=== PATIENT | female | born 1975 | race Caucasian/White ===

== ENCOUNTER 2020-02-16 09:29 | Emergency (ER) | payer BC ==
[~2020-02-16] VITALS: Ht 175.3 cm; Wt 107.9 kg
[~2020-02-16 09:29] MED LIST: IBUP-1222 PO; IBUP1CAP PO
[2020-02-16] MEDS ORDERED: ACETAMINOPHEN 500 MG TABLET PO ONE (10:00)
[2020-02-16] MEDS ORDERED: ACETAMINOPHEN 500 MG TABLET ONE (10:02)
--- NOTE | 2020-02-16 10:08 | NUR ---
PT CAME IN CO OF SOB, WHEEZING, BODY ACHES AND FEVER. PT WAS SENT FROM . AT SHE WAS 88% ON ROOM AIR. PLACED HER ON 2 LITERS OF O2 VIA NC AND SENT HER TO THE ED. PT STATES "MY HUSBANDS CO WORKERS HAVE TESTED POSITIVE FOR COVID BUT HE REMAINS NEGATIVE. I WAS SWABBED FOR COVID 2 DAYS AGO. RESULTS PENDING." PT ADMITS TO SMOKING 30 CIGS A DAY. DENIES OTHER PULMONARY HEALTH HISTORY
[2020-02-16 10:46] LABS: BASOPHILS % (AUTO) 0 % (0-1); EOSINOPHILS # (AUTO) 0.14 x10^3/uL (0-0.4); EOSINOPHILS % (AUTO) 1 % (1-7); LYMPHOCYTES # (AUTO) 0.99 x10^3/uL (1-3.4); LYMPHOCYTES % (AUTO) 7 % (22-44); MD NO; MEAN CORPUSCULAR HEMOGLOBIN 32.4 pg (27.0-34.8); MEAN CORPUSCULAR HGB CONC 32.8 g/dL (32.4-35.8); MEAN CORPUSCULAR VOLUME 98.6 fL (80-100); MEAN PLATELET VOLUME 8.2 fL (7.4-10.4); MONOCYTES # (AUTO) 0.44 x10^3/uL (0.2-0.8); MONOCYTES % (AUTO) 3 % (2-9); NEUTROPHILS # (AUTO) 12.03 x10^3/uL (1.8-6.8); NEUTROPHILS % (AUTO) 89 % (42-75); PLATELET COUNT 231 x10^3/uL (130-400); RED BLOOD COUNT 4.18 x10^6/uL (3.82-5.3); RED CELL DISTRIBUTION WIDTH 13.3 % (9.6-15.2)
[2020-02-16 10:56] LABS: ALBUMIN 3.6 g/dL (3.4-5.0); CALCIUM 8.4 mg/dL (8.5-10.1); CHLORIDE 110 mmol/L (98-107); CREATININE 0.95 mg/dL (0.55-1.02)
[2020-02-16 11:04] VITALS: BP 118/77
[2020-02-16 11:05] LABS: ANION GAP 6 mmol/L (5-15)
--- NOTE | 2020-02-16 11:05 | NUR ---
PT RESTING IN [facility]. WATCHING TV. VSS. NAD. NO NEEDS AT THIS TIME
--- NOTE | 2020-02-16 12:28 | NUR ---
PT 96% ON ROOM AIR
--- NOTE | 2020-02-16 12:53 | NUR ---
PT HAS BEEN 96%-97% O2 SAT ON ROOM AIR FOR OVER 45MINUTES. PT TO BE DC. [employer] WILL COME TO HER HOUSE AND SET HER UP WITH HOME O2. PT HAS BEEN EDUCATED ON THE PLAN OF CARE.
== END 2020-02-16 13:13 | disposition home or self-care (01) ==
LOC: ED 10:06
DX: B34.9 Viral infection, unspecified (principal); R06.02 Shortness of breath; F17.210 Nicotine dependence, cigarettes, uncomplicated
CPT/HCPCS: 36415; 71045; 80048; 82040; 85025; 93005; 99285